=== PATIENT | male | born 1960 | race Two or more races ===

== ENCOUNTER 2023-11-28 07:54 | Outpatient (CLI) | payer OTHER ==
[2023-11-28 09:29] LABS: HEMATOCRIT 53.5 % (39.0-48.0); HEMOGLOBIN 18.3 g/dL (13-16.00); MEAN CELL VOLUME 96.1 fL (80.0-100.00); MEAN CORPUSCULAR HEMOGLOBIN 32.9 pg (27.00-32.0); MEAN CORPUSCULAR HGB CONC 34.2 g/dl (32.0-36.0); PLATELET COUNT 313 K/uL (150-450); RED BLOOD COUNT 5.56 M/uL (4.00-6.00); RED CELL DISTRIBUTION WIDTH 14.9 % (11.5-14.5)
[2023-11-28 09:54] LABS: % SATURACION 20.8 % (20-50); ALBUMIN 3.8 gm/dL (3.4-5.0); BILIRUBIN TOTAL 1.15 mg/dL (0.3-1.2); CALCIUM 9.9 mg/dL (8.5-10.1); CREATININE SERUM 1.39 mg/dL (0.70-1.30); FERRITIN 237.7 NG/ML (26-388); GFR 51.28; GLOBULINA 3.8 G/DL (2.4-3.5); POTASSIUM 3.94 mEq/L (3.5-5.1); PROSTATIC SPECIFIC ANTIGEN 2.52 NG/ML (0.010-4.00); T4 FREE 1.23 NG/ML (0.76-1.46); TOTAL PROTEIN 7.6 gm/dL (6.4-8.2); TSH 2.73 uIU/mL (0.358-3.74)
[2023-11-28 11:10] LABS: FOLIC ACID 3.48 ng/ml (4.78-20)
[2023-11-28 12:06] LABS: MANUAL PLATELET COUNT 374; PLATELET ESTIMATE NORMAL (NORMAL)
[2023-11-29 05:08] LABS: ANTI THYROID PEROXIDASE 16 IU/mL (0-34)
[2023-11-29 09:07] LABS: TRANSFERIN 256 mg/dL (177-329)
== END 2023-11-28 07:55 | disposition home or self-care (01) ==
LOC: LAB 07:54
PROVIDERS: ATTEND Internal Medicine Hematology & Oncology
DX: D72.820 Lymphocytosis (symptomatic) (principal); E06.3 Autoimmune thyroiditis; I10 Essential (primary) hypertension; E11.9 Type 2 diabetes mellitus without complications; G47.33 Obstructive sleep apnea (adult) (pediatric); D75.0 Familial erythrocytosis; D50.8 Other iron deficiency anemias; R79.9 Abnormal finding of blood chemistry, unspecified; R74.02 Elevation of levels of lactic acid dehydrogenase [LDH]; K76.89 Other specified diseases of liver; D51.1 Vitamin B12 deficiency anemia due to selective vitamin B12 malabsorption with proteinuria; E03.8 Other specified hypothyroidism; R97.20 Elevated prostate specific antigen [PSA]; R97.8 Other abnormal tumor markers

== ENCOUNTER → 2024-07-17 08:43 | Outpatient (CLI) | payer OTHER ==
[2024-07-17 09:17] LABS: HEMATOCRIT 42.4 % (39.0-48.0); HEMOGLOBIN 14.5 g/dL (13-16.00); MEAN CELL VOLUME 93.2 fL (80.0-100.00); MEAN CORPUSCULAR HEMOGLOBIN 31.9 pg (27.00-32.0); MEAN CORPUSCULAR HGB CONC 34.3 g/dl (32.0-36.0); PLATELET COUNT 360 K/uL (150-450); RED BLOOD COUNT 4.55 M/uL (4.00-6.00); RED CELL DISTRIBUTION WIDTH 13.8 % (11.5-14.5)
[2024-07-17 09:52] LABS: % SATURACION 27.6 % (20-50); ALBUMIN 3.9 gm/dL (3.4-5.0); BILIRUBIN TOTAL 0.86 mg/dL (0.3-1.2); CALCIUM 9.3 mg/dL (8.5-10.1); CREATININE SERUM 1.61 mg/dL (0.70-1.30); GFR 43.15; GLOBULINA 3.4 G/DL (2.4-3.5); POTASSIUM 3.76 mEq/L (3.5-5.1); TOTAL PROTEIN 7.3 gm/dL (6.4-8.2)
[2024-07-17 10:19] LABS: FOLIC ACID 9.48 ng/ml (4.78-20)
[2024-07-17 13:43] LABS: MANUAL PLATELET COUNT 414
[2024-07-17 13:47] LABS: PLATELET ESTIMATE NORMAL (NORMAL)
== END | disposition home or self-care (01) ==
LOC: LAB 08:43
PROVIDERS: ATTEND Internal Medicine Hematology & Oncology
DX: D72.820 Lymphocytosis (symptomatic) (principal); E06.3 Autoimmune thyroiditis; I10 Essential (primary) hypertension; E11.9 Type 2 diabetes mellitus without complications; G47.33 Obstructive sleep apnea (adult) (pediatric); D75.0 Familial erythrocytosis

== ENCOUNTER 2024-11-07 08:28 | Outpatient (CLI) | payer OTHER ==
[2024-11-07 09:48] LABS: HEMATOCRIT 46.4 % (39.0-48.0); HEMOGLOBIN 15.9 g/dL (13-16.00); MEAN CELL VOLUME 94.3 fL (80.0-100.00); MEAN CORPUSCULAR HEMOGLOBIN 32.4 pg (27.00-32.0); MEAN CORPUSCULAR HGB CONC 34.3 g/dl (32.0-36.0); PLATELET COUNT 346 K/uL (150-450); RED BLOOD COUNT 4.91 M/uL (4.00-6.00); RED CELL DISTRIBUTION WIDTH 14.7 % (11.5-14.5)
[2024-11-07 10:44] LABS: % SATURACION 39.6 % (20-50); ALBUMIN 3.7 gm/dL (3.4-5.0); BILIRUBIN TOTAL 0.92 mg/dL (0.3-1.2); CALCIUM 9.2 mg/dL (8.5-10.1); CREATININE SERUM 1.61 mg/dL (0.70-1.30); FERRITIN 251.7 NG/ML (26-388); GFR 43.15; GLOBULINA 3.4 G/DL (2.4-3.5); POTASSIUM 4.04 mEq/L (3.5-5.1); PROSTATIC SPECIFIC ANTIGEN 2.01 NG/ML (0.010-4.00); T4 FREE 1.37 NG/ML (0.76-1.46); TOTAL PROTEIN 7.1 gm/dL (6.4-8.2)
[2024-11-07 10:46] LABS: TSH 0.144 uIU/mL (0.358-3.74)
[2024-11-07 12:45] LABS: FOLIC ACID 5.89 ng/ml (4.78-20); VITAMIN D3 25 HYDROXY 40.73 ng/ml (30-120)
[2024-11-08 08:58] LABS: MANUAL PLATELET COUNT 366
[2024-11-08 08:59] LABS: PLATELET ESTIMATE NORMAL (NORMAL)
== END 2024-11-07 08:29 | disposition home or self-care (01) ==
LOC: LAB 08:28
PROVIDERS: ATTEND Internal Medicine Hematology & Oncology
DX: D72.820 Lymphocytosis (symptomatic) (principal); E06.3 Autoimmune thyroiditis; I10 Essential (primary) hypertension; E11.9 Type 2 diabetes mellitus without complications; G47.33 Obstructive sleep apnea (adult) (pediatric); D75.0 Familial erythrocytosis; D50.8 Other iron deficiency anemias; R79.9 Abnormal finding of blood chemistry, unspecified; R74.02 Elevation of levels of lactic acid dehydrogenase [LDH]; K76.89 Other specified diseases of liver; E55.9 Vitamin D deficiency, unspecified; E03.8 Other specified hypothyroidism; R97.0 Elevated carcinoembryonic antigen [CEA]